=== PATIENT | male | born 1995 | race Caucasian/White ===

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

== ENCOUNTER 2017-03-11 02:57 | Emergency (ER) | payer OTHER ==
[2017-03-11] MEDS ORDERED: NS 0.9% 1000 ML* 1,000 ML IV SCH (03:30)
[2017-03-11 04:07] LABS: Hematocrit 43 % (42-52); Hemoglobin 14.3 g/dl (14.0-18.0); Mean Corpuscular HGB Conc 34 g/dl (31-36); Mean Corpuscular Hemoglobin 32 pg (27-31); Mean Corpuscular Volume 94 fL (80-94); Mean Platelet Volume 9 um3 (7.4-10.4); Red Blood Count 4.54 10^6/ul (4.0-5.4); Red Cell Distribution Width 13 % (10.5-15); White Blood Count 6.5 10^3/ul (3.5-10.8)
[2017-03-11 04:23] LABS: Albumin 4.9 g/dL (3.2-5.2); BUN/Creatinine Ratio 10.5 (8-20); Calcium 9.8 mg/dL (8.6-10.3); EGFR African American 105.3 (>60); EGFR Non-African American 81.9 (>60); Globulin 2.5 g/dL (2-4); Potassium 3.8 mmol/L (3.5-5.0); Total Bilirubin 0.6 mg/dL (0.2-1.0); Total Protein 7.4 g/dL (6.4-8.9)
[2017-03-11] MEDS ORDERED: Iohexol 300* (CONTRAST) 10 ML SDV IV ONE (05:00)
[2017-03-11 06:32] LABS: Urine Bacteria 1+ (Absent); Urine Bilirubin Negative (Negative); Urine Glucose Negative (Negative); Urine Nitrite Negative (Negative)
--- NOTE | 2017-03-11 06:41 | ED ---
Vamshi Dior Rebecca, scribed for Mark[employer]d on 03/11/17 at 0317 . Abdominal Pain/Male - HPI Summary HPI Summary: Pt is a 22 y/o M BIBA who presents to ED c/o abdominal pain. Sx began suddenly at 0200 this morning and is currently moderate, ranked 4/10. Pain is diffuse with radiation to the lumbar back. Sx aggravated and alleviated by nothing. Denies any other symptoms including fever, N/V. No PSHx on the abdomen and no prior similar episodes. - History of Current Complaint Chief Complaint: EDAbdPain Stated Complaint: ADB PAIN Time Seen by Provider: 03/11/17 03:09 Hx Obtained From: Patient Onset/Duration: Sudden Onset, Still Present Severity Currently: Moderate Pain Intensity: 4 Pain Scale Used: 0-10 Numeric Location: Diffuse Radiates: Yes Radiates to: Back - Lumbar Aggravating Factor(s): Nothing Alleviating Factor(s): Nothing Associated Signs And Symptoms: Positive: Negative. Negative: Fever - Allergies/Home Medications Allergies/Adverse Reactions: Allergies Allergy/AdvReac Type Severity Reaction Status Date / Time No Known Allergies Allergy Verified 08/30/16 22:28 PMH/Surg Hx/FS Hx/Imm Hx Endocrine/Hematology History: Denies: Hx Anticoagulant Therapy, Hx Diabetes, Hx Thyroid Disease Cardiovascular History: Denies: Hx Congestive Heart Failure, Hx Deep Vein Thrombosis, Hx Hypertension , Hx Myocardial Infarction, Hx Pacemaker/ICD Respiratory History: Denies: Hx Asthma, Hx Chronic Obstructive Pulmonary Disease (COPD), Hx Lung Cancer, Hx Pneumonia, Hx Pulmonary Embolism GI History: Denies: Hx Gall Bladder Disease, Hx Gastrointestinal Bleed, Hx Ulcer, Hx Urosepsis History: Denies: Hx Kidney Stones, Hx Renal Disease Neurological History: Denies: Hx Dementia, Hx Migraine, Hx Seizures, Hx Transient Ischemic Attacks (TIA) Psychiatric History: Denies: Hx Anxiety, Hx Depression, Hx Schizophrenia, Hx Bipolar Disorder Infectious Disease History: No Infectious Disease History: Denies: Hx Hepatitis, Hx Human Immunodeficiency Virus (HIV), Traveled Outside the [place] in Last 30 Days - Family History Known Family History: Positive: Hypertension Negative: Cardiac Disease, Diabetes - Social History Alcohol Use: Weekly Substance Use Type: Reports: None Smoking Status (MU): Never Smoked Tobacco Review of Systems Negative: Fever Positive: Abdominal Pain - Diffuse with radiation to the lumbar back. Negative : Vomiting, Nausea All Other Systems Reviewed And Are Negative: Yes Physical Exam - Summary Physical Exam Summary: Appearance: Well appearing, no pain distress Skin: warm, dry, reflects adequate perfusion Head/face: normal Eyes: EOMI, LORENA ENT: normal Neck: supple, nontender Respiratory: CTA, breath sounds present Cardiovascular: RRR, pulses symmetrical Abdomen: RLQ tenderness, soft Bowel: present Musculoskeletal: normal, strength/ROM intact Neuro: normal, sensory motor intact, A&Ox3 Triage Information Reviewed: Yes Vital Signs On Initial Exam: Initial Vitals Temp Pulse Resp BP Pulse Ox 97.6 F 51 18 117/57 100 03/11/17 03:01 03/11/17 03:01 03/11/17 03:01 03/11/17 03:01 03/11/17 03:01 Vital Signs Reviewed: Yes - Vernell Coma Scale Coma Scale Total: 15 Diagnostics - Vital Signs Vital Signs Temp Pulse Resp BP Pulse Ox 03/11/17 03:04 97.6 F 55 18 117/57 100 03/11/17 03:01 97.6 F 51 18 117/57 100 - Laboratory Result Diagrams: 03/11/17 03:50 03/11/17 03:50 Lab Statement: Any lab studies that have been ordered have been reviewed, and results considered in the medical decision making process. - CT CT Abd/Pel CT Interpretation: No Acute Changes - The appendix is difficult to visualize. However, there is no para-cecal inflammation or inflammatory mass and what I believe to be a normal appendix can faintly be seen best on the sagittal views. No bowel obstruction free air or free fluid. Negative for diverticulitis or colitis. Large amount of stool in the colon/constipaion. Normal kidney and urinary tracts. Urinary bladder is somewhat distended but otherwise normal. Normal liver. Normal spleen. Normal pancreas. Normal adrenal glands. Normal gallbaldder. No other acute intra-abdominal abnormalitis. ED phsyician reviewed this radiology report and agrees. CT Interpretation Completed By: Radiologist Re-Evaluation - Re-Evaluation First Eval Re-Evaluation Time: 06:40 Change: Improved Comment: Discussed and explained CT and UA results and plan to D/C. Abdominal Pain Fem Course/Dx - Course Assessment/Plan: Pt is a 22 y/o M BIBA who presents to ED c/o abdominal pain. Sx began suddenly at 0200 this morning and is currently moderate, ranked 4/10. Pain is diffuse with radiation to the lumbar back. Sx aggravated and alleviated by nothing. Denies any other symptoms including fever, N/V. No PSHx on the abdomen and no prior similar episodes. In the ED course, pt was given fluids. CT Abd/Pel reading is above. Blood work was done. Lipase of 10, WBC of 6.5. UA negative for UTI. Pt will be D/C to home with Dx of acute abdominal pain and a follow up with his PCP. He understands and agrees. - Diagnoses Provider Diagnoses: Nonspecific abdominal pain Discharge - Discharge Plan Condition: Stable Disposition: HOME Patient Education Materials: Acute Abdominal Pain (ED) Referrals: [facility] [Primary Care Provider] - 3 Days The documentation as recorded by the Vamshi mcmillan Rebecca accurately reflects the service I personally performed and the decisions made by , Rd Flores.
[2017-03-11 06:52] VITALS: BP 131/65
--- NOTE | 2017-03-11 09:34 | RAD ---
Indication: Right lower quadrant tenderness. Contrast: Administered 85.1 ml of OMNIPAQUE 300 mg/ml. CT of the abdomen and pelvis was performed after oral and IV contrast administration. The lung bases demonstrate no pleural fluid, nodules or masses. The heart is of normal size without evidence of pericardial effusion. The liver is normal in size. No focal lesions or intrahepatic duct dilatation is noted. The gallbladder demonstrates no calcified gallstones. No pericholecystic fluid or wall thickening is identified. The common duct is not dilated. The spleen is normal in size. No adrenal lesions are noted. The kidneys demonstrate symmetric nephrograms without focal lesions. No hydronephrosis is noted. No retroperitoneal lymphadenopathy. No dilated loops of bowel are noted. No retroperitoneal or pelvic lymphadenopathy is noted. No dilated loops of bowel are noted. The urinary bladder is unremarkable. Hernias are noted. IMPRESSION: Distended urinary bladder. The appendix is not definitively identified. No free fluid is identified. No abnormal masses or fluid collections are noted.
== END 2017-03-11 06:50 | disposition home or self-care (01) ==
LOC: ED 02:57
DX: R10.9 Unspecified abdominal pain (principal)
CPT/HCPCS: 36415; 74177; 80053; 81003; 81015; 83605; 83690; 85025; 85610; 85730; 87086; 99283; Q9967